=== PATIENT | male | born 1995 | race Caucasian/White ===

== ENCOUNTER 2021-11-14 12:21 | Observation (INO) | payer BC, SELFPAY ==
[2021-11-14 12:30] VITALS: BP 135/94; PULSE 100; RESP 16; TEMP 36.9; O2SAT 98
--- NOTE | 2021-11-14 12:50 | PC.NURSE ---
Dr. Schwab at bedside to assess pt.
[2021-11-14] MEDS: ONDANSETRON INJ 4 MG/2 ML VIAL IV PUSH (13:14)
[2021-11-14 13:17] LABS: Basophils Percent Auto 0.3 % (0.2-1.2); Hematocrit 41.9 % (42.0-52.0); Hemoglobin 14.2 g/dL (14.0-18.0); Immature Granulocyte Absolute 0.03 K/mm3 (0.00-0.031); Immature Granulocyte Percent A 0.4 % (0-0.5); Lymphocytes Absolute Auto 1.69 K/mm3 (0.9-3.2); Lymphocytes Percent Auto 21.9 % (18.3-44.2); Mean Corpuscular HGB Conc 33.9 g/dl (32-36); Mean Corpuscular Hemoglobin 30.4 pg (26-34); Mean Corpuscular Volume 89.7 fl (80-100); Mean Platelet Volume 9.9 fl (7.4-10.4); Monocytes Absolute Auto 0.5 K/mm3 (0.1-0.6); Monocytes Percent Auto 6.2 % (2.6-8.5); Neutrophils Absolute Auto 5.5 K/mm3 (1.3-6.7); Neutrophils Percent Auto 71.2 % (45.5-73.1); Platelet Count Result 291 k/mm3 (150-375); Red Blood Count 4.67 M/mm3 (4.6-6.20); Red Cell Distribution Width 12.3 % (11.5-14.5); White Blood Count 7.7 K/mm3 (4.5-10.0)
--- NOTE | 2021-11-14 13:17 | ED.ALCOHOL ---
HPI - Alcohol General Chief Complaint: Alcohol Stated Complaint: alcohol Time Seen by Provider: 11/14/21 12:36 Source: patient and family History of Present Illness HPI narrative: Patient presents with concern for alcohol abuse. Reports a history of alcohol abuse and excessively detox approximately 4 years ago. Patient reports he resumed drinking approximately 4 days ago and has been giving 1/2 pint a day over the past couple days and family brought him in for concern for withdrawal and detox. Family reports he has been drinking for the past couple months and over the past 4 days he has been doing several pints a day. Reports they are in the process of moving to [place] and are set up to initiate detox when they get down to [place] and they are looking for something to assist with his immediate withdrawal symptoms. Patient reports he last drank approximately 8 hours ago family reports he last drank approximately 15 minutes ago. Patient reports he has diffuse body aches and feels nauseous he does report a history of alcohol withdrawal Related Data Home Medications Medication Instructions Recorded Confirmed desvenlafaxine succinate 10 mg PO DAILY 11/14/21 Allergies Allergy/AdvReac Type Severity Reaction Status Date / Time No Known Allergies Allergy Unverified 02/13/18 00:16 Review of Systems Review of Systems: CONSTITUTIONAL: Denies fever, chills, or sweats. EYES: Denies visual changes, redness, or discharge. ENT: Denies rhinorrhea, congestion, sore throat, or otalgia. CARDIOVASCULAR: Denies chest pain, palpitations, or edema. RESPIRATORY: Denies cough or dyspnea. GASTROINTESTINAL: Denies abdominal pain, vomiting, or diarrhea. GENITOURINARY: Denies dysuria or hematuria. SKIN: Denies rash or itching. MUSCULOSKELETAL: Denies back pain, joint pain, or myalgia. NEUROLOGIC: Denies headache, numbness, dizziness, or weakness. PSYCHIATRIC: Denies anxiety or depression. All systems reviewed & are unremarkable except as noted in HPI and below PMFSH Past Medical History Medical History (Updated 11/14/21 @ 15:51 by Daniel Bradford MD) Alcohol abuse Autism Social History Social History (Updated 11/14/21 @ 13:19 by Daniel Bradford MD) Alcohol intake: current Living arrangements: with family Exam Narrative: GENERAL: Well-appearing, well-nourished, and in no acute distress. HEAD: Normocephalic, atraumatic. EYES: PERRLA and EOMI. ENT: Nares clear, no rhinorrhea or epistaxis. Mucous membranes moist. NECK: Supple. No masses. No JVD ABDOMEN: Soft, nontender, nondistended, normal active bowel sounds. EXTREMITIES: Normal range of motion. No edema. SKIN: Warm, dry, no rash. NEURO: No focal deficits. Alert and oriented x3. PSYCH: Normal mood and affect. Course Reevaluation(s) Reevaluation #1: Patient having increased tenderness and nausea had a CIWA of 9. Given elevated CIWA patient will be admitted for alcohol withdrawal. Family and patient is comfortable with patient plan. Date: 11/14/21 Time: 15:48 Consultations Consultation #1: Care coordination consult placed for possible inpatient detox Date: 11/14/21 Time: 14:23 Vital Signs Vital signs: Vital Signs Temperature 36.9 C 11/14/21 12:30 Pulse Rate 100 11/14/21 12:30 Respiratory Rate 16 11/14/21 12:30 Blood Pressure 135/94 H 11/14/21 12:30 Pulse Oximetry 98 11/14/21 12:30 Temperature 36.9 C 11/14/21 12:30 Pulse Rate 84 11/14/21 15:03 Respiratory Rate 14 11/14/21 15:03 Blood Pressure 134/80 11/14/21 15:03 Pulse Oximetry 95 11/14/21 15:03 MDM - Alcohol MDM Narrative Medical decision making narrative: Patient presents with concern for alcohol withdrawal. Has prior history of alcohol abuse and prior success with detox appears to be having a relapse. Patient reports diffuse tremulousness anxiety nausea and diffuse body aches. Reports has had seizures in the past. Labs obtained notable for an alcohol level of 270 patie
[2021-11-14 13:28] LABS: Alanine Aminotransferase 29 U/L (4-50); Albumin Level 5.1 g/dL (3.5-5.1); Alkaline Phosphatase 72 U/L (38-126); Anion Gap 8 mmol/L (8-16); Aspartate Amino Transferase 49 U/L (17-59); Bilirubin,Total 0.2 mg/dL (0.2-1.3); Blood Urea Nitrogen 5 mg/dL (9-20); Calcium 8.8 mg/dL (8.4-10.2); Carbon Dioxide 28 mmol/L (22-30); Chloride 106 mmol/L (98-107); Estimated CRCL calculation 135 ml/min; Estimated Glomerular Filt Rate > 60; Glucose 112 mg/dL (65-110); Lipase 177 U/L (23-300); Potassium 4.1 mmol/L (3.4-5.0); Sodium 142 mmol/L (137-145)
[2021-11-14 13:30] LABS: Ethanol 279 mg/dL (<10)
[2021-11-14 13:50] LABS: Appearance Urine Clear (Clear); Bilirubin Urine Negative (Negative); Blood Urine Negative (Negative); Glucose Urine UA Negative (Negative); Ketones Urine Negative (Negative); Leukocyte Esterase Ur Negative LEU/UL (Negative); Nitrate Urine Negative (Negative); Protein Urine Negative (Negative); Urobilinogen Urine 0.2 mg/dL (<2.0)
[2021-11-14 13:53] LABS: Add Urine Microscopic? NO; Color Urine Light Yellow (Yellow)
[2021-11-14 14:04] LABS: Amphetamine Screen Urine Negative (Negative); Barbiturate Screen Urine Negative (Negative); Benzodiazepines Screen Urine Negative (Negative); Cannabinoid Screen Urine Positive (Negative); Cocaine Screen Urine Negative (Negative); Methadone Screen Urine Negative (Negative); Opiate Screen Urine Negative (Negative); Phencyclidine Screen Urine Negative (Negative)
[2021-11-14] MEDS: THIAMINE HCL INJ 100 MG, FOLIC ACID INJ 1 MG, MULTIVITAMINS-12 INJ VIAL 1 5 ML, MULTIVI... IV CONT (14:05)
--- NOTE | 2021-11-14 14:54 | PC.NURSE ---
Traffic Superintendent at bedside to speak with patient and patient's father.
[2021-11-14 15:03] VITALS: BP 134/80; PULSE 84; RESP 14; O2SAT 95
--- NOTE | 2021-11-14 15:06 | PCCCNOTE ---
Called to ED by Dr. Bradford for consult to place for detox. Spoke with father extensively; pt and family in process of moving to [place] and has outpt alcohol rehab set up thru [facility]. Father concerned that son needs short term detox tonight so as not to drink and monitor for withdraw. 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 They just want a 24 to 48 hr detox and then they will be going to [place] to live and have tx. I informed Dr. Bradford that I can not find any short term place that meets their wishes.
--- NOTE | 2021-11-14 15:15 | PC.NURSE ---
Message left at [facility] admissions regarding inpatient treatment per request of Dr. Bradford.
--- NOTE | 2021-11-14 15:55 | PM.IMHP ---
H&P: HPI History of Present Illness Date/Time: 11/14/21 15:55 26 yr old man with depression, anxiety, autism, congenital nystagmus, substance abuse and alcohol abuse, who has been to rehab for substance abuse several times was brought to the ED by his parents due to intermittent 3 days of binge drinking of > 3/4ths of vodka daily over several weeks. Some of the history was provided by both parents who were present at bedside. Patient stated that this recent rohit drinking was triggered by his girlfriend breaking up with him. His current complains were only nausea, vomiting and tremors. He endorsed multiple hospitalizations for alcohol withdrawal including several complicated by withdrawal seizures. Hence why his parents brought him to the ED. In the ED, his alcohol level was found to be elevated at 279, normal chemistry panel and CBC. Admitted for the management of alcohol intoxication and withdrawal. Chief Complaint: I've been drinking a lot Review of Systems Constitutional: Constitutional: Reports poor appetite Cardiovascular: Cardiovascular: Denies chest pain, Denies chest pain at rest, Denies lightheadedness and Denies dyspnea Respiratory: Respiratory: Denies chest congestion, Denies cough, Denies pain on inspiration and Denies dyspnea Gastrointestinal: Gastrointestinal: Denies abdominal pain, Denies change in stool character, Denies constipation, Denies dysphagia, Denies diarrhea, Reports nausea and Reports vomiting Genitourinary: Genitourinary: Denies hematuria and Denies dysuria Musculoskeletal: Musculoskeletal: Denies back pain and Denies myalgias Neurologic: Reports Normal hearing present, Denies Abnormal speech present, Denies syncope, Denies numbness and Denies Other visual disturbances Psychiatric: Psychiatric: Reports anxiety, Denies change in appetite and Denies confusion Hematologic/Lymphatic: Hematologic/Lymphatic: Denies easy bleeding and Denies easy bruising PMFSH Past Medical History Medical History (Updated 11/14/21 @ 15:51 by Daniel Bradford MD) Alcohol abuse Autism Social History Social History (Updated 11/14/21 @ 13:19 by Daniel Bradford MD) Alcohol intake: current Living arrangements: with family Meds Home Medications and Allergies Home Medications Medication Instructions Recorded Confirmed Type desvenlafaxine succinate 10 mg PO DAILY 11/14/21 History Allergies Allergy/AdvReac Type Severity Reaction Status Date / Time No Known Allergies Allergy Unverified 02/13/18 00:16 Vital Signs Vital Signs - 24 hr 11/14/21 12:30 11/14/21 15:03 Temperature 98.4 F Pulse Rate 100 84 Respiratory Rate 16 14 Blood Pressure 135/94 H 134/80 Pulse Oximetry 98 95 Exam Const: General: cooperative, comfortable, no acute distress, alert and awake Nutritional Appearance: average body habitus HENMT: Head: normal to inspection and normocephalic Eyes: General: appearance normal, both eyes and all related structures Periorbital: periorbital findings normal Eyelids: eyelids normal Sclera: sclerae normal EOM: Nystagmus present Resp: Effort & Inspection: normal respiratory effort and able to speak in complete sentences Auscultation: clear to auscultation bilaterally Cardio: Rate: regular rate Rhythm: regular rhythm Heart sounds: S1 normal heart sound present and S2 normal heart sound present GI: GI Palp: No abdominal tenderness and Yes Soft to palpation Auscultation: normal bowel sounds Skin: General skin exam: normal color and no rashes or lesions noted Extrem: General: normal to inspection, no clubbing, cyanosis or edema and no calf tenderness H&P: Results Labs Labs: Short CBC 11/14/21 Range/Units 13:12 WBC 7.7 (4.5-10.0) K/mm3 Hgb 14.2 (14.0-18.0) g/dL Hct 41.9 L (42.0-52.0) % Plt Count 291 (150-375) k/mm3 [facility] 11/14/21 13:12 Sodium 142 Potassium 4.1 Chloride 106 Carbon Dioxide 28 BUN 5 L Creatinine 0.70 Glucose 112 H Calcium
[2021-11-14] MEDS: LORazepam INJ (*CRX) 2 MG/ML VIAL 1 MG IV PUSH (15:56)
[2021-11-14 16:03] LABS: Glucose Point of Care 109 mg/dl (65-105)
[2021-11-14] MEDS: DEXTROSE 5%/0.9% SOD CHL 1,000 ML 125 ML IV CONT ×2 (16:38→23:57)
[2021-11-14 17:09] VITALS: BP 141/82; PULSE 88; RESP 16; TEMP 36; O2SAT 97
--- NOTE | 2021-11-14 17:25 | ADMGEN ---
This patient, Davian Cano, was admitted to Medical Room 255-01. Patient/family oriented to hospital policies and general routines including ID bracelet, bed and alarms, visiting hours, pain management, procedures, bathroom and other care routines, personal items, smoking policy, room service/diet, and visiting hours. Information on how to activate the Rapid Response Team has been discussed. Patient/Family are encouraged to report perceived risks to care and to ask questions if they do not understand what they are told or what they should do.
[2021-11-14 18:28] LABS: Glucose Point of Care 140 mg/dl (65-105)
[2021-11-14] MEDS: HEPARIN SODIUM 5,000 UNITS/ML VIAL 5000 UNITS SUB-Q (19:51)
[2021-11-14] MEDS: LORazepam INJ (*CRX) 2 MG/ML VIAL IV PUSH ×2 (19:54→23:56)
[2021-11-14 19:55] VITALS: BP 122/73; PULSE 90; RESP 17; TEMP 37.1; O2SAT 98
[2021-11-14 21:02] LABS: Glucose Point of Care 119 mg/dl (65-105)
[2021-11-15] MEDS: ONDANSETRON INJ 4 MG/2 ML VIAL IV PUSH ×2 (00:05→12:09)
[2021-11-15] MEDS: chlordiazePOXIDE (*CRX) 25 MG CAPSULE 50 MG PO ×5 (00:45→23:55)
[2021-11-15] MEDS: LORazepam INJ (*CRX) 2 MG/ML VIAL IV PUSH (04:05)
[2021-11-15 04:15] VITALS: BP 123/53; PULSE 101; RESP 17; TEMP 36; O2SAT 100
[2021-11-15 05:34] LABS: Anion Gap 7 mmol/L (8-16); Blood Urea Nitrogen 6 mg/dL (9-20); Calcium 8.3 mg/dL (8.4-10.2); Carbon Dioxide 27 mmol/L (22-30); Chloride 105 mmol/L (98-107); Estimated CRCL calculation 156 ml/min; Estimated Glomerular Filt Rate > 60; Glucose 107 mg/dL (65-110); Potassium 3.6 mmol/L (3.4-5.0); Sodium 139 mmol/L (137-145)
[2021-11-15] MEDS: HEPARIN SODIUM 5,000 UNITS/ML VIAL 5000 UNITS SUB-Q ×2 (08:11→20:07)
[2021-11-15] MEDS: DEXTROSE 5%/0.9% SOD CHL 1,000 ML 125 ML IV CONT (08:12)
--- NOTE | 2021-11-15 08:53 | PM.IMPN ---
Progress Note: A&P Additional Plan #Alcohol intoxication and withdrawal: -presenting alcohol level elevated at 279 at presentation. -last drink was 30 minutes before presentation. -has tremors, nausea and anxiety as evidence of withdrawal. Continue [facility] protocol -IV D5-NS, daily thiamine & folic acid, [facility] protocol. -IV zofran PRN -monitor BMP -care advocate consulted. #DVT prophylaxis: SC heparin 5,000 units BID. 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[employer] patient is able to make decision Patient denies fever headache chest pain shortness of breath I am seeing the patient for alcohol withdrawal Exam Narrative: Alert Chest no wheeze crackles Abdomen nontender nondistended CVS S1 + S2 Lower extremity edema Objective Data Vital Signs Vital Signs: Vital Signs - 24 hr 11/14/21 12:30 11/14/21 15:03 11/14/21 17:09 Temperature 98.4 F 96.8 F L Pulse Rate 100 84 88 Respiratory Rate 16 14 16 Blood Pressure 135/94 H 134/80 141/82 H Pulse Oximetry 98 95 97 11/14/21 19:55 11/15/21 04:15 Temperature 98.7 F 96.8 F L Pulse Rate 90 101 H Respiratory Rate 17 17 Blood Pressure 122/73 123/53 L Pulse Oximetry 98 100 Intake/Output Intake/Output: Intake & Output 11/12/21 11/13/21 11/14/21 11/15/21 23:59 23:59 23:59 23:59 Intake Total 2012.2 1740 Balance 2013.2 1740 Meds/Results Medications: Active Medications Generic Name Dose Route Start Last Admin Trade Name Freq PRN Reason Stop Dose Admin Chlordiazepoxide HCl 50 mg 11/15/21 06:00 11/15/21 06:20 Chlordiazepoxide (*Crx) 25 Mg Capsule PO 50 mg Q6HR CAREN Administration Heparin Sodium (Porcine) 5,000 units 11/14/21 21:00 11/15/21 08:11 Heparin Sodium 5,000 Units/Ml Vial SUB-Q 5,000 units Q12HR CAREN Administration Dextrose/Sodium Chloride 1,000 mls @ 125 mls/hr 11/14/21 15:55 11/15/21 08:12 Dextrose 5% Sodium Chloride 0.9% IV CONT 125 mls/hr .Q8H CAREN Administration Lorazepam 2 mg 11/14/21 15:51 11/15/21 04:05 Lorazepam Inj (*Crx) 2 Mg/Ml Vial IV PUSH 2 mg Q4H PRN Administration Withdrawal Ondansetron HCl 4 mg 11/14/21 15:48 11/15/21 00:05 Ondansetron Inj 4 Mg/2 Ml Vial IV PUSH 4 mg Q4HR PRN Administration Nausea And Vomiting Labs Labs: Laboratory Results - last 24 hr 11/14/21 11/14/21 11/14/21 13:12 13:12 13:12 WBC 7.7 RBC 4.67 Hgb 14.2 Hct 41.9 L MCV 89.7 MCH 30.4 MCHC 33.9 RDW 12.3 Plt Count 291 MPV 9.9 Immature Gran % (Auto) 0.4 Neut % (Auto) 71.2 Lymph % (Auto) 21.9 [place] % (Auto) 6.2 Eos % (Auto) 0.0 Baso % (Auto) 0.3 Lymph # (Auto) 1.69 [place] # (Auto) 0.5 Eos # (Auto) 0.0 Baso # (Auto) 0.0 Abs Immat Gran (auto) 0.03 Absolute Neuts (auto) 5.5 Absolute Nucleated RBC 0.0 Nucleated RBC % 0.0 Sodium 142 Potassium 4.1 Chloride 106 Carbon Dioxide 28 Anion Gap 8 BUN 5 L Creatinine 0.70 Estim Creat Clear Calc 135 Estimated GFR > 60 Glucose 112 H POC Capillary Glucose Calcium 8.8 Magnesium Total Bilirubin 0.2 AST 49 ALT 29 Alkaline Phosphatase 72 Total Protein 9.0 H Albumin 5.1 Lipase 177 Urine Color Urine Appearance Urine pH Ur Specific [place] Urine Protein Urine Glucose (UA) Urine Ketones Ur Blood (Man) Urine Nitrate Urine Bilirubin Urine Urobilinogen Leukocyte Esterase Rfl Urine Opiates Screen Urine Methadone Screen Ur Barbiturates Screen Ur Phencyclidine Scrn Ur Amphetamine Screen U Benzodiazepines Scrn Urine Cocaine Screen U Cannabinoids Screen Ethyl Alcohol 279 11/14/21 11/14/21 11/14/21
[2021-11-15 09:10] LABS: Basophils Percent Auto 0.3 % (0.2-1.2); Hematocrit 35.5 % (42.0-52.0); Immature Granulocyte Absolute 0.01 K/mm3 (0.00-0.031); Immature Granulocyte Percent A 0.2 % (0-0.5); Lymphocytes Absolute Auto 1.43 K/mm3 (0.9-3.2); Lymphocytes Percent Auto 22.8 % (18.3-44.2); Mean Corpuscular HGB Conc 33.8 g/dl (32-36); Mean Corpuscular Hemoglobin 30.4 pg (26-34); Mean Corpuscular Volume 89.9 fl (80-100); Mean Platelet Volume 10.8 fl (7.4-10.4); Monocytes Absolute Auto 0.7 K/mm3 (0.1-0.6); Monocytes Percent Auto 11.5 % (2.6-8.5); Neutrophils Absolute Auto 4.1 K/mm3 (1.3-6.7); Neutrophils Percent Auto 65.2 % (45.5-73.1); Platelet Count Result 236 k/mm3 (150-375); Red Blood Count 3.95 M/mm3 (4.6-6.20); Red Cell Distribution Width 12.3 % (11.5-14.5); White Blood Count 6.3 K/mm3 (4.5-10.0)
--- NOTE | 2021-11-15 10:37 | PHAR ---
HOME MED VERIFED COLOR: ORANGE SHAPE: [place] IMPRINT: [phone] DESVENLAFAXINE ER 100MG TABLET TAKE 1 DAILY
[2021-11-15 14:35] VITALS: BP 127/69; PULSE 75; RESP 16; TEMP 36.9; O2SAT 99
[2021-11-15] MEDS: IBUPROFEN 400 MG TABLET PO (14:58)
[2021-11-15 20:00] VITALS: BP 119/70
[2021-11-15 20:01] VITALS: BP 119/70; PULSE 77; RESP 18; TEMP 36; O2SAT 100
[2021-11-15] MEDS: MELATONIN 3 MG TABLET PO (20:07)
[2021-11-15 20:16] VITALS: BMI 22.4
[2021-11-15] MEDS: DEXTROSE 5%/0.9% SOD CHL 1,000 ML 75 ML IV CONT (21:12)
[2021-11-16] VITALS: BP 119/70
[2021-11-16 04:00] VITALS: BP 119/70
[2021-11-16 04:21] VITALS: BP 129/80; PULSE 82; RESP 16; TEMP 36; O2SAT 100
[2021-11-16] MEDS: chlordiazePOXIDE (*CRX) 25 MG CAPSULE 50 MG PO (05:44)
[2021-11-16 05:47] LABS: Basophils Percent Auto 0.2 % (0.2-1.2); Hematocrit 36.3 % (42.0-52.0); Hemoglobin 11.7 g/dL (14.0-18.0); Immature Granulocyte Absolute 0.02 K/mm3 (0.00-0.031); Immature Granulocyte Percent A 0.4 % (0-0.5); Lymphocytes Absolute Auto 1.09 K/mm3 (0.9-3.2); Lymphocytes Percent Auto 22.4 % (18.3-44.2); Mean Corpuscular HGB Conc 32.2 g/dl (32-36); Mean Corpuscular Volume 93.1 fl (80-100); Mean Platelet Volume 10.3 fl (7.4-10.4); Monocytes Absolute Auto 0.6 K/mm3 (0.1-0.6); Monocytes Percent Auto 12.5 % (2.6-8.5); Neutrophils Absolute Auto 3.1 K/mm3 (1.3-6.7); Neutrophils Percent Auto 64.5 % (45.5-73.1); Platelet Count Result 207 k/mm3 (150-375); Red Cell Distribution Width 12.4 % (11.5-14.5); White Blood Count 4.9 K/mm3 (4.5-10.0)
[2021-11-16 06:03] LABS: Alanine Aminotransferase 29 U/L (4-50); Albumin Level 4.3 g/dL (3.5-5.1); Alkaline Phosphatase 53 U/L (38-126); Anion Gap 7 mmol/L (8-16); Aspartate Amino Transferase 45 U/L (17-59); Bilirubin,Total 0.5 mg/dL (0.2-1.3); Blood Urea Nitrogen 4 mg/dL (9-20); Calcium 8.4 mg/dL (8.4-10.2); Carbon Dioxide 26 mmol/L (22-30); Chloride 108 mmol/L (98-107); Estimated CRCL calculation 158 ml/min; Estimated Glomerular Filt Rate > 60; Glucose 98 mg/dL (65-110); Potassium 3.8 mmol/L (3.4-5.0); Sodium 141 mmol/L (137-145)
--- NOTE | 2021-11-16 17:13 | PM.DS ---
DS: Admitting Diagnosis Discharge Date 11/16/21 Admitting Diagnosis Alcohol Abuse with withdrawal DS: Discharge Diagnosis Discharge Diagnosis (1) Alcohol abuse with withdrawal: Code(s): F10.139 - Alcohol abuse with withdrawal, unspecified Status: Acute DS: Summary Hospital Course Hospital Course: 26 yr old man with depression, anxiety, autism, congenital nystagmus, substance abuse and alcohol abuse, who has been to rehab for substance abuse several times was brought to the ED by his parents due to intermittent 3 days of binge drinking of > 3/4ths of vodka daily over several weeks.Treated for alcohol withdrawal with CIWA protocol. Discharged home in stable condition, mom to take him to [place] where he will be going to inpatient alcohol rehab unit. Discharged in stable condition Status at Discharge Functional status at discharge: independent ambulation Overall status at discharge: patient is progressing back to baseline Time Spent with Patient Time attestation: Total time spent providing and/or coordinating discharge services: Time spent: Less than 30 minutes Exam Const: General: no acute distress Limitations: no limitations HENMT: Mouth: Yes moist mucous membranes Eyes: Sclera: sclerae normal Neck: Neck: supple Resp: Auscultation: clear to auscultation bilaterally Cardio: Rate: regular rate Rhythm: regular rhythm GI: GI Palp: Yes Soft to palpation Auscultation: normal bowel sounds Skin: General skin exam: normal color Neuro: General: gait normal Psych: Appearance: grossly normal DS: Data Data Completed and Pending Labs on day of discharge: Labs from last 24 hours 11/16/21 11/16/21 05:21 05:21 WBC 4.9 RBC 3.90 L Hgb 11.7 L Hct 36.3 L MCV 93.1 MCH 30.0 MCHC 32.2 RDW 12.4 Plt Count 207 MPV 10.3 Immature Gran % (Auto) 0.4 Neut % (Auto) 64.5 Lymph % (Auto) 22.4 [place] % (Auto) 12.5 H Eos % (Auto) 0.0 Baso % (Auto) 0.2 Lymph # (Auto) 1.09 [place] # (Auto) 0.6 Eos # (Auto) 0.0 Baso # (Auto) 0.0 Abs Immat Gran (auto) 0.02 Absolute Neuts (auto) 3.1 Absolute Nucleated RBC 0.0 Nucleated RBC % 0.0 Sodium 141 Potassium 3.8 Chloride 108 H Carbon Dioxide 26 Anion Gap 7 L BUN 4 L Creatinine 0.60 L Estim Creat Clear Calc 158 Estimated GFR > 60 Glucose 98 Calcium 8.4 Total Bilirubin 0.5 AST 45 ALT 29 Alkaline Phosphatase 53 Total Protein 7.0 Albumin 4.3 Discharge Plan Discharge Attending physician on discharge: Cintia Rodas Consulting providers: Moises Arias Discharging Clinician: Cintia Rodas Anticipated Discharge Date/Time: 11/16/21 07:53 Patient Disposition: Home, Self-Care Activity: as tolerated Diet: as tolerated and regular Patient Instructions: Antibiotic Form, Pain Management (DC) Stand Alone Forms: General Discharge Information Follow-up/Referrals: Moises Arias MD [Physician] - Discharge Medications: New chlordiazepoxide HCl 25 mg Capsule 50 mg PO Q6HR Qty: 12 RF: 0 ondansetron 4 mg tablet,disintegrating 4 mg PO Q6H PRN (Reason: nausea and vomiting) Qty: 10 RF: 0 Continued desvenlafaxine succinate 100 mg tablet extended release 24 hr 100 mg PO DAILY RF: 0 Discontinued Marjuana RF: 0 Date of admission: 11/14/21 15:51 Primary Care Provider: Mireille,Geovanny Admitting Provider: Mell Torres Attending physician on admission: Mell Torres Condition: Stable Quality VTE Prophylaxis VTE prophylaxis: pharmacologic ordered [facility] Discharge Billing Inpatient Discharge Inpatient Discharge: 24956 Hosp D/C 30 Min
== END 2021-11-16 08:21 | disposition home or self-care (01) ==
LOC: ANHED 15:54 → ANH2MED 11-15 22:09
PROVIDERS: Internal Medicine; Admitting Provider Internal Medicine; Emergency Provider Emergency Medicine; PCP Student in an Organized Health Care Education/Training Program; Visit Provider Internal Medicine
DX: F10.229 Alcohol dependence with intoxication, unspecified (principal); F10.239 Alcohol dependence with withdrawal, unspecified; T51.0X1A Toxic effect of ethanol, accidental (unintentional), initial encounter; Y90.8 Blood alcohol level of 240 mg/100 ml or more; F84.0 Autistic disorder; R60.0 Localized edema; F41.9 Anxiety disorder, unspecified; F32.A Depression, unspecified; H55.01 Congenital nystagmus; Z79.899 Other long term (current) drug therapy
CPT/HCPCS: 36415; 80048; 80053; 80307; 81003; 82948; 83690; 83735; 85025; 96361; 96365; 96366; 96372; 96375; 96376; 99238; 99285; A9270; G0378; J1644; J2060; J2405; J3411; J3475; J7042; J7121